=== PATIENT | male | born 1960 | race Caucasian/White ===

== ENCOUNTER 2020-10-25 15:19 | Emergency (ER) | payer OTHER ==
[~2020-10-25] VITALS: Ht 165.1 cm; Wt 10.0 kg
[2020-10-25] MEDS ORDERED: BUPROPION XL150 MG PO (15:29)
[2020-10-25] MEDS ORDERED: CANDESARTAN-HC1 EACH PO (15:29)
[2020-10-25] MEDS ORDERED: FLONASE16 GM NS (15:29)
[2020-10-25] MEDS ORDERED: CLONAZEPAM0.5 MG PO (15:29)
== END 2020-10-25 20:15 | disposition home or self-care (01) ==
LOC: ER 15:19
DX: R10.12 Left upper quadrant pain (principal)

== ENCOUNTER → 2023-02-25 | Emergency (ER) | payer OTHER ==
[~2023-02-25] VITALS: Ht 165.1 cm; Wt 105.2 kg
[~2023-02-25] MED LIST: ANALPRAM HC 2.530 GM RECTAL; BUPROPION XL150 MG PO; CANDESARTAN-HC1 EACH PO; CIPRO500 MG PO; CLONAZEPAM0.5 MG PO; FLONASE16 GM NS; LEVSIN/SL0.125 MG SL; METRONIDAZOLE500 MG PO; PEPCID AC20 MG PO
== END | disposition home or self-care (01) ==
LOC: ER 15:16
DX: R10.32 Left lower quadrant pain (principal); K57.30 Diverticulosis of large intestine without perforation or abscess without bleeding

== ENCOUNTER 2023-03-26 06:50 | Day surgery (SDC) | payer OTHER ==
[~2023-03-26] VITALS: Ht 162.6 cm; Wt 104.3 kg
[~2023-03-26 06:50] MED LIST changes: +ATACAND HCT 161 EACH; +PRILOSEC OTC20 MG PO; +WELLBUTRIN SR150 MG PO
== END 2023-03-26 18:15 | disposition home or self-care (01) ==
LOC: CIR.AMB 06:50
PROVIDERS: ATTEND Specialist
DX: K42.9 Umbilical hernia without obstruction or gangrene (principal); I10 Essential (primary) hypertension; Z20.822 Contact with and (suspected) exposure to COVID-19

== ENCOUNTER 2025-02-20 09:14 | Emergency (ER) | payer OTHER ==
[~2025-02-20] VITALS: Ht 165.1 cm; Wt 104.3 kg
[2025-02-20] MEDS ORDERED: CELEXA10 MG (10:06)
[2025-02-20] MEDS ORDERED: FAMOtidine 10 MG/ML (4ML VIAL) IV ONE (11:15)
[2025-02-20] MEDS ORDERED: KETOROLAC TROMETHAMINE 30 MG VIAL IV ONE (11:15)
[2025-02-20] MEDS ORDERED: FAMOTIDINE/PF 20 MG/2 ML VIAL ONE (11:32)
[2025-02-20] MEDS ORDERED: KETOROLAC TROMETHAMINE 30 MG VIAL ONE (11:32)
[2025-02-20 11:58] LABS: BASO % 0.3 % (0.1-1.2); EOS # 0.12 (0.04-0.54); EOS % 1.7 % (0.7-7.0); HEMATOCRIT 41.7 % (40.1-51.0); HEMOGLOBIN 14.1 g/dL (13.7-17.5); LYMPH # 1.72 (1.18-3.74); LYMPH % 24.9 % (19.3-53.1); MEAN CORPUSCULAR HEMOGLOBIN 30.4 pg (25.6-32.2); MONO # 0.57 (0.24-0.82); MONO % 8.2 % (4.7-12.5); NEUT # 4.46 (1.56-6.13); NEUT % 64.5 % (34.0-71.1); PLATELET COUNT 132 K/uL (163-369); RED BLOOD COUNT 4.64 M/uL (4.63-6.08); RED CELL DISTRIBUTION WIDTH 13.3 % (11.6-14.4)
[2025-02-20 12:14] LABS: URINE APPEARANCE Clear; URINE BILIRRUBIN Negative (NEGATIVE); URINE BLOOD Negative; URINE COLOR Yellow; URINE GLUCOSE Negative (NEGATIVE); URINE KETONE Negative (NEGATIVE); URINE LEUKOCYTE Negative; URINE NITRATE Negative; URINE PROTEIN Negative (NEGATIVE); URINE UROBILINOGEN 0.2 E.U./dl
[2025-02-20 12:17] LABS: URINE BACTERIA 4.8 uL (0.0-1933); URINE EPITHELIAL CELLS 16.3 uL (0.0-38.8); URINE WBC 2.5 uL (0.0-23.2)
[2025-02-20 12:18] LABS: INR 1.04; PARTIAL THROMBOPLASTIN TIME 29.6 SECONDS (22.0-34.0); PROTHROMBIN TIME 11.3 SECONDS (9.0-11.5)
[2025-02-20 12:23] LABS: URINE RBC 1.3 uL (0.0-20.8)
[2025-02-20 12:32] LABS: ALBUMIN 4.1 gm/dL (3.4-5.0); BILIRUBIN TOTAL 1.33 mg/dL (0.3-1.2); CALCIUM 9.4 mg/dL (8.5-10.1); CREATININE SERUM 0.96 mg/dL (0.70-1.30); GFR 78.37; GLOBULINA 3.4 G/DL (2.4-3.5); POTASSIUM 4.2 mEq/L (3.5-5.1); TOTAL PROTEIN 7.5 gm/dL (6.4-8.2)
[2025-02-20] MEDS ORDERED: ONDANSETRON HCL 2 MG/ML VIAL IV ONE (14:00)
[2025-02-20] MEDS ORDERED: ONDANSETRON HCL 2 MG/ML VIAL ONE (15:08)
[2025-02-20] MEDS ORDERED: LEVSIN/SL0.125 MG SL (16:11)
[2025-02-20] MEDS ORDERED: METRONIDAZOLE500 MG PO (16:11)
[2025-02-20] MEDS ORDERED: PEPCID AC20 MG PO (16:11)
[2025-02-20] MEDS ORDERED: CIPRO500 MG PO (16:11)
== END 2025-02-20 16:29 | disposition home or self-care (01) ==
LOC: ER 09:14
PROVIDERS: General Practice
DX: R10.31 Right lower quadrant pain (principal); I10 Essential (primary) hypertension; Z95.0 Presence of cardiac pacemaker; G47.39 Other sleep apnea
CPT/HCPCS: 36415; 74177; 96365; 99284; J1885; J3490; Q9965